=== PATIENT | female | born 1970 | race Caucasian/White ===

== ENCOUNTER 2017-02-03 10:20 | Emergency (ER) | payer BC ==
[~2017-02-03] VITALS: Ht 165.1 cm; Wt 107.2 kg
[2017-02-03 10:26] VITALS: BP 128/78; PULSE 80; RESP 20; TEMP 97.8; O2SAT 94
--- NOTE | 2017-02-03 10:44 | PD ---
HPI Chief Complaint: Respiratory Symptoms Time Seen by Provider: 10:31 Travel History International Travel<30 days: No Contact w/Intl Traveler<30days: No Traveled to known affect area: No History of Present Illness HPI Patient is a 46-year-old female presents emergency department for evaluation of shortness of breath. The patient states that there was mold discovered in her house 2006 and ever since then she's had intermittent asthma exacerbations. States her current exacerbation to going on for the past day and a half and she' s been using nebulizers at home without relief. She also endorses a dry cough. She states she's been admitted to the hospital for for her asthma but has never had to be intubated before. Denies any fever denies any nausea vomiting denies any chest pain. Symptoms are moderate, and her chest, context as above, no relieving factors. PFSH Past Medical History ?: Not Past Surgical History Hysterectomy: Yes Social History Alcohol Use: No Tobacco Use: Yes Substance Use: No Allergies-Medications (Allergen,Severity, Reaction): Coded Allergies: azithromycin (Verified Allergy, Severe, hives, 02/03/17) ibuprofen (Verified Allergy, Severe, eye blistering, 02/03/17) prednisone (Verified Allergy, Mild, rash, 02/03/17) states steroids cause rash, has taken with benadryl without a problem codeine (Verified Adverse Reaction, Unknown, jittery, 02/03/17) Reported Meds & Prescriptions Reported Meds & Active Scripts Active Tessalon Perles (Benzonatate) 100 Mg Cap 100 Mg PO TID PRN Prednisone 20 Mg Tab 40 Mg PO DAILY 5 Days Reported Albuterol Neb (Albuterol Sulfate) 2.5 Mg/3 Ml Neb 2.5 Mg NEB Q4HR NEB While awake Proair Hfa 8.5 GM Inh (Albuterol Sulfate) 90 Mcg/Act Aer 2 Puff INH Q4-6H PRN 108 mcg/actuation Milk of Magnesia Liq (Magnesium Hydroxide) 400 Mg/5 Ml Susp 15 Ml PO DAILY PRN Flexeril (Cyclobenzaprine HCl) 10 Mg Tab 10 Mg PO BID Butalbital-Acetaminophen 50-325 Mg Tab 1-2 Tab PO Q4HR PRN Do not exceed 6 tablets per day. Trazodone (Trazodone HCl) 150 Mg Tablet 200 Mg PO HS Ambien (Zolpidem Tartrate) 10 Mg Tab 10 Mg PO HS PRN Clonazepam 0.5 Mg Tab 0.5 Mg PO BID PRN Omeprazole 40 Mg Cap 40 Mg PO HS Mirapex (Pramipexole Dihydrochloride) 0.75 Mg Tab 0.75 Mg PO HS Cymbalta DR (Duloxetine HCl) 60 Mg Capdr 90 Mg PO DAILY Singulair (Montelukast Sodium) 10 Mg Tab 10 Mg PO DAILY Spiriva Handihaler (Tiotropium Inh) 18 Mcg Cap 18 Mcg INH DAILY 1 capsule = 18 mcg Advair Diskus Inh (Fluticasone-Salmeterol Inh) 500-50 Mcg/Blist Aer 1 Puff INH BID Rinse mouth after use. Review of Systems Except as stated in HPI: all other systems reviewed are Neg Physical Exam Narrative GENERAL: Well-developed well-nourished sitting forward in tripod position breathing heavily. SKIN: Focused skin assessment warm/dry. HEAD: Atraumatic. Normocephalic. EYES: Pupils equal and round. No scleral icterus. No injection or drainage. ENT: No nasal bleeding or discharge. Mucous membranes pink and moist. NECK: Trachea midline. No JVD. CARDIOVASCULAR: Regular rate and rhythm. No murmur appreciated. RESPIRATORY: No accessory muscle use. Scant end expiratory wheeze only.. Breath sounds equal bilaterally. No retractions. GASTROINTESTINAL: Abdomen soft, non-tender, nondistended. Hepatic and splenic margins not palpable. MUSCULOSKELETAL: No obvious deformities. No clubbing. No cyanosis. No edema. NEUROLOGICAL: Awake and alert. No obvious cranial nerve deficits. Motor grossly within normal limits. Normal speech. PSYCHIATRIC: Appropriate mood and affect; insight and judgment normal. Data Data Last Documented VS Vital Signs Date Time Temp Pulse Resp B/P (MAP) Pulse Ox O2 Delivery O2 Flow Rate FiO2 02/03/17 13:02 98.2 84 17 122/69 (86) 95 02/03/17 11:47 Room Air Orders Orders Chest, Single Ap (02/03/17 10:41) Ecg Monitoring (02/03/17 10:41) Iv Access Insert/Monitor (02/03/17 10:41) Oximetry (02/03/17 10:41) Oxygen Administration (02/03/17 10:41) Methylprednisolone So Succ Inj (Solumedr (02/03/17 10:45) Albuterol-Ipratropium Neb (Duoneb Neb) (02/03/17 10:45) Sodium Chloride 0.9% Flush (Ns Flush) (02/03/17 10:45) Diphenhydramine Inj (Benadryl Inj) (02/03/17 10:45) Lorazepam (Ativan) (02/03/17 11:30) Ed Discharge Order (02/03/17 12:37) Resp Request For Service (02/03/17 ) [facility] Medical Decision Making Medical Screen Exam Complete: Yes Emergency Medical Condition: Yes Differential Diagnosis Asthma exacerbation, pneumonia unlikely, bronchitis. Narrative Course Patient roomed emergency department, appears well and in minimal respiratory distress. Units given, prednisone given which patient states she has an allergy to some was given Benadryl as well. I think there is a high likelihood of anxiety in this patient. She is doing better and sleeping soundly without any respiratory difficulty and reassessment. Oxygen saturations are been within normal limits while she's been in the emergency department, she is stable for discharge, she was provided a spacer, prednisone prescription follow- up with her primary care physician and discussed return to ED criteria Diagnosis Primary Impression: Asthma exacerbation Qualified Codes: J45.901 - Unspecified asthma with (acute) exacerbation Patient Instructions: Asthma (DC), General Instructions Med/Other Pt SpecificInfo: Prescription(s) given Scripts Benzonatate (Tessalon Perles) 100 Mg Cap 100 MG PO TID Y for COUGH, #20 CAP 0 Refills Prov: Wilfrido Ignacio MD 02/03/17 Prednisone (Prednisone) 20 Mg Tab 40 MG PO DAILY for 5 Days, #10 TAB 0 Refills Prov: Wilfrido Ignacio MD 02/03/17 Disposition: 01 DISCHARGE HOME Condition: Stable Wilfrido Ignacio MD Feb 03, 2017 10:44
[2017-02-03] MEDS ORDERED: methylPREDNISolone SOD SUCC 125 MG/2 ML VIAL IV PUSH ONE (10:45)
[2017-02-03] MEDS ORDERED: diphenhydrAMINE HCL 50 MG/ML VIAL IV PUSH ONE (10:45)
[2017-02-03] MEDS ORDERED: SODIUM CHLORIDE 0.9% FLUSH 10 ML FLUSH IVF PRN (10:45)
[2017-02-03] MEDS: RESP: ALBUTEROL 2.5 MG/IPRATROPIUM 0.5 MG NEB (SCH) INH ×2 (10:49→10:50)
[2017-02-03] MEDS ORDERED: CYCL10TA PO (11:13)
[2017-02-03] MEDS ORDERED: ADVA500A INH (11:13)
[2017-02-03] MEDS ORDERED: SPIRCAP INH (11:13)
[2017-02-03] MEDS ORDERED: CLON0.5T PO (11:13)
[2017-02-03] MEDS ORDERED: TRAZ1TAB14 PO (11:13)
[2017-02-03] MEDS ORDERED: MIRA0.75 PO (11:13)
[2017-02-03] MEDS ORDERED: AMBI10TA PO (11:13)
[2017-02-03] MEDS ORDERED: BUTA1TAB30 PO (11:13)
[2017-02-03] MEDS ORDERED: MILKSUS PO (11:13)
[2017-02-03] MEDS ORDERED: ALBUAER3 INH (11:13)
[2017-02-03] MEDS ORDERED: MONT10TA2 PO (11:13)
[2017-02-03] MEDS ORDERED: ALBU0.08 NEB (11:13)
[2017-02-03] MEDS ORDERED: CYMB60CA PO (11:13)
[2017-02-03] MEDS ORDERED: OMEP40CA2 PO (11:13)
[2017-02-03] MEDS ORDERED: LORazepam 2 MG TAB PO ONE (11:30)
[2017-02-03 11:47] VITALS: BP 127/70; PULSE 85; RESP 18; O2SAT 95
--- NOTE | 2017-02-03 11:48 | RADRPT ---
EXAM DATE/TIME: 02/03/2017 11:25 [place] COMPARISON: No previous studies available for comparison. INDICATIONS : Wheezing, short of breath. MEDICAL HISTORY : asthma SURGICAL HISTORY : None. ENCOUNTER: Initial ACUITY: 3 days PAIN SCORE: 0/10 LOCATION: Bilateral chest FINDINGS: A single view of the chest demonstrates the lungs to be symmetrically aerated without evidence of mas s, infiltrate or effusion. The cardiomediastinal contours are unremarkable. Osseous structures are intact. CONCLUSION: Normal examination. Joshua Eaton Jr., MD on February 03, 2017 at 11:46 Board Certified Radiologist. This report was verified electronically.
[2017-02-03 13:02] VITALS: BP 122/69; TEMP 98.2
[2017-02-03] MEDS ORDERED: PRED20 PO (13:13)
[2017-02-03] MEDS ORDERED: BENZ100 PO (13:13)
== END 2017-02-03 13:27 | disposition home or self-care (01) ==
LOC: PHED 10:20
DX: J45.21 Mild intermittent asthma with (acute) exacerbation (principal); Z72.0 Tobacco use
CPT/HCPCS: 71010; 94640; 94664; 96374; 96375; 99284; J1200; J2930